=== PATIENT | female | born 1955 | race Caucasian/White ===

== ENCOUNTER 2017-10-21 12:02 | Inpatient (IN) | payer OTHER ==
--- NOTE | 2017-10-17 18:09 | PREOPHP ---
DATE OF ADMISSION: 10/21/2017 PREOPERATIVE INTERNAL MEDICINE CONSULTATION AND MEDICAL HISTORY AND PHYSICAL The patient to have surgery with Dr. Nate Miller on 10/18/2017. CONSULTATION REQUESTED BY: Dr. Nate Miller for medical evaluation and clearance of a 62-year-old woman about to undergo surgery. Thank you, Dr. Miller, for allowing us to participate in the care of this patient. HISTORY OF PRESENT ILLNESS: Alejandra Ramos, a 62-year-old woman, issues with her neck, is currently being admitted for anterior cervical diskectomy, decompression and fusion of levels C6-C7 and possibly removal of hardware C5-C6 where prior surgery was done. Her past medical history, social history and past surgical history includes the following: Carpal tunnel syndrome on the right side. Had diverticular disease which required surgery. Also had a melanoma removed from her back and as mentioned above. Had a vaginal hysterectomy and a separate salpingo- oophorectomy and as mentioned above, the prior cervical spine surgery. MEDICATIONS: She currently is taking the following medications: 1. Metformin 1000 mg b.i.d. 2. Lantus insulin 30 units at night and Humalog base of 12 units before meals as well as a sliding scale. 3. Trazodone 150 mg as needed. 4. She is currently on a Z-Claus; however, it will be finished well before her surgery. ALLERGIES: THE PATIENT IS ALLERGIC TO: 1. PAXIL. 2. IODINE DYE. 3. NONSTEROIDAL ANTI-INFLAMMATORIES, INCLUDING IBUPROFEN, ALEVE, ETC. She has had no broken bones. In general, has been doing relatively well. SOCIAL HISTORY: The patient is , has 2 children and 2 grandchildren. Her pregnancies resulted in vaginal deliveries. She does not smoke or drink alcohol or coffee. 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 FAMILY HISTORY: Both parents are . Father at 65, had COPD, was a smoker. Mother at age 82 of pneumonia. One sister is in good health. There is a family history of COPD and cancer. REVIEW OF SYSTEMS HEENT: Periodic tension headaches. CARDIORESPIRATORY: Denies any chest pain or shortness of breath. GASTROINTESTINAL: No melena or hematemesis. GENITOURINARY: No urgency, frequency. GYNECOLOGIC: Post hysterectomy. MUSCULOSKELETAL: Positive for neck pain. NEUROPSYCHIATRIC: Unremarkable. GENERAL HEALTH: As above. PHYSICAL EXAMINATION: VITAL SIGNS: The patient's blood pressure was 136/70, pulse was 88 and regular , respirations were 18, temperature 98.3, height 63 inches, weight 188 pounds. GENERAL: The patient was noted to be a well-developed, well-nourished female, alert and cooperative, in no apparent acute distress, oriented to time, place and person. HEAD, EARS, EYES, NOSE AND THROAT: Head was atraumatic. Eyes: Pupils were equal, reactive to light and accommodation. Fundi were benign. Tympanic membranes were unremarkable. Nose was negative. Mouth was unremarkable. Fair oral hygiene was present. NECK: Supple without any rigidity. Trachea was midline. Thyroid was unremarkable. Neck veins were flat. Carotid pulses were equal. No bruits were heard. Scar from prior anterior cervical spine surgery was noted. BACK: Unremarkable. CHEST: Symmetrical. AXILLARY: Did not reveal any masses. BREASTS: Full breast exam per voting machine mechanic, was not repeated. LUNGS: Clear to percussion and auscultation. HEART: PMI is fifth intercostal space at the midclavicular line. Regular sinus rhythm was noted. No significant murmurs, rubs or gallops being elicited. ABDOMEN: Soft, good bowel sounds were noted. No significant organomegaly, masses or tenderness. Scars from prior surgery were noted. GENITALIA, PELVIC, RECTAL: Per gynecology. EXTREMITIES: Did not reveal any clubbing, edema or cyanosis. Peripheral pulses were physiologic. SKIN: Moist and warm without any eruptions. No gross lymphadenopathy was noted. NEUROLOGIC: Grossly intact. IMPRESSION: 1. Cervical disk disease, C6-C7. Prior surgery at C5-C6. 2. Lumbar disk disease. 3. Diabetes mellitus type 2. 4. Post hysterectomy. 5. Stable health. LABORATORY: Review of laboratory and other data revealed the following: The patient's EKG was basically normal; however, she had a heart rate of about 97. Otherwise, there were no abnormalities noted. The patient's chest x-ray was normal. Her laboratory revealed the following: Normal electrolytes, glucose, BUN, creatinine, calcium. Liver function test revealed a minimal elevated ALT and AST, probably secondary to fatty infiltration of the liver. CBC, UA, PT and PTT were normal as well. The patient's chest x-ray was normal as well. DISCUSSION: Dr. Miller, I see no contraindication in this patient undergoing current proposed surgery under desired form of anesthesia and will be more than happy to follow her along with you during her stay at [facility] in terms of her diabetes and other medical management. Thank you again, Dr. Miller, for allowing us to participate in the care of this patient. Dictated By: KELLY CHANDRA MD SS/NTS Conf#: [id number] DID#: [id number] CC: NATE MILLER MD;*EndCC* MTDD
[2017-10-21] VITALS (16 sets, daily range): BP systolic 116–151; BP diastolic 58–83; PULSE 68–110; RESP 12–21; Ht 160 cm; Wt 89.2 kg
[~2017-10-21] VITALS: Ht 160 cm; Wt 89.2 kg
[2017-10-21] MEDS ORDERED: METF1000 PO (12:42)
[2017-10-21] MEDS ORDERED: LANT3I SC (12:43)
[2017-10-21] MEDS ORDERED: INSU200I SQ (12:44)
[2017-10-21] MEDS ORDERED: TRAZ150T65 PO (12:44)
[2017-10-21] MEDS ORDERED: LACTATED RINGER'S 1L BAG IV* SCH (13:30)
[2017-10-21] MEDS ORDERED: CEFAZOLIN 2 GM/50 ML (PMX) 50 ML IVPB SCH (13:30)
[2017-10-21] MEDS ORDERED: POLYMYXIN/BACITRACIN 1L IRRIG ONE (14:13)
[2017-10-21] MEDS: DEXTROSE 5%-0.9% NACL 1,000 ML IV SCH (15:30)
--- NOTE | 2017-10-21 15:49 | HPN ---
Date/Time of Note Date/Time of Note DATE: 10/21/17 TIME: 15:49 Interval H&P Admission Note Pt. seen H&P reviewed: No system changes JAMIR LAKE PA-C Oct 21, 2017 15:49
[2017-10-21] MEDS ORDERED: AL HYDROX/MG HYDROX/SIMETH 30 ML CUP PO PRN (16:00)
[2017-10-21] MEDS ORDERED: BISACODYL 10 MG SUPP PR PRN (16:00)
[2017-10-21] MEDS ORDERED: HYDROmorphONE 0.2 MG/ML PCA IV SCH (16:00)
[2017-10-21] MEDS ORDERED: ACETAMINOPHEN 325 MG TAB PO PRN (16:00)
[2017-10-21] MEDS ORDERED: CYCLOBENZAPRINE 10 MG TAB PO PRN (16:00)
[2017-10-21] MEDS ORDERED: NALOXONE (0.4 MG/ML) INJ IV PRN (16:00)
[2017-10-21] MEDS ORDERED: THROMBIN 5000 UNIT VIAL ONE (16:17)
[2017-10-21] MEDS ORDERED: SURGIFOAM POWDER 1 GM KIT ONE (16:17)
[2017-10-21] MEDS ORDERED: BUPIVACAINE 0.5%/EPI (SDV) 30 ML INJ ONE (16:17)
[2017-10-21] MEDS: CEFAZOLIN 1 GM/50 ML (PMX) 50 ML IVPB SCH ×2 (16:25→23:52)
[2017-10-21] MEDS ORDERED: MIDAZOLAM 1 MG/ML 2 ML INJ ONE (16:25)
[2017-10-21] MEDS ORDERED: INSULIN LISPRO SQ SCH (17:30)
[2017-10-21] MEDS: INSULIN ASPART [NOVOLOG] 3 ML PEN SC SCH ×2 (18:00→21:00)
[2017-10-21] MEDS: metFORMIN 500 MG TAB PO SCH (18:00)
[2017-10-21] MEDS ORDERED: CEFAZOLIN 1 GM INJ ONE (18:45)
[2017-10-21] MEDS ORDERED: GLYCOPYRROLATE 0.4 MG INJ ONE (18:45)
[2017-10-21] MEDS ORDERED: LIDOCAINE 2% (SDV) 5 ML INJ ONE (18:45)
[2017-10-21] MEDS ORDERED: NEOSTIGMINE 3 MG/3 ML SYRINGE ONE (18:45)
[2017-10-21] MEDS ORDERED: ROCURONIUM 50 MG INJ ONE (18:45)
[2017-10-21] MEDS ORDERED: PROPOFOL 20 ML ONE (18:45)
[2017-10-21] MEDS ORDERED: ONDANSETRON 4 MG INJ ONE (18:46)
--- NOTE | 2017-10-21 19:00 | SIPON ---
Date/Time of Note Date/Time of Note DATE: 10/21/17 TIME: 18:59 Operative Report Preoperative Diagnosis cervical stenosis Postoperative Diagnosis cervical stenosis Operation/Procedure Performed cervical fusion Surgeon see signature line document control assistant Michele Anesthesia: general Estimated blood loss: 10 - 50 ml's Transfusion Required none Specimen disk and plate Grafts/Implants plate and screws Complications none SHAN KAHN MD Oct 21, 2017 19:00
[2017-10-21] MEDS ORDERED: HYDROmorphONE (0.2 MG/ML) 10ML SYG IV ONE (19:05)
[2017-10-21] MEDS ORDERED: FENTAnyl 50 MCG/ML VIAL ONE (19:06)
[2017-10-21] MEDS ORDERED: MEPERIDINE 25 MG INJ IV PRN (19:30)
[2017-10-21] MEDS ORDERED: LABETALOL HCL 20MG INJ IV PRN (19:30)
[2017-10-21] MEDS ORDERED: HYDROmorphONE (0.2 MG/ML) 10ML SYG IV PRN ×2 (19:30)
[2017-10-21] MEDS ORDERED: ONDANSETRON 4 MG INJ IV PRN (19:30)
[2017-10-21] MEDS ORDERED: DIPHENHYDRAMINE 50 MG INJ IV PRN (19:30)
[2017-10-21] MEDS ORDERED: FENTAnyl 50 MCG/ML VIAL IV PRN (19:30)
[2017-10-21] MEDS ORDERED: hydrALAzine 20 MG INJ IV PRN (19:30)
[2017-10-21] MEDS: DIPHENHYDRAMINE 50 MG INJ IV PRN (19:37)
[2017-10-21] MEDS ORDERED: GLUCAGON 1 MG INJ IM PRN (20:00)
[2017-10-21] MEDS ORDERED: GLUCOSE GEL 15 GRAM TUBE BUCCAL PRN (20:00)
[2017-10-21] MEDS ORDERED: GLUCOSE GEL 15 GRAM TUBE PO PRN ×2 (20:00)
[2017-10-21] MEDS ORDERED: DEXTROSE 50% 50 ML SYRINGE IV PRN ×2 (20:00)
[2017-10-21] MEDS: 1/2 NS + KCL 20 MEQ 1,000 ML IV SCH (20:55)
[2017-10-21] MEDS: traZODone 50 MG TAB PO SCH (20:58)
[2017-10-21] MEDS: DOCUSATE SODIUM 100 MG CAP PO SCH (20:59)
--- NOTE | 2017-10-21 21:39 | RADRPT ---
PROCEDURE: Intraoperative imaging of the cervical spine with fluoroscopy. CLINICAL INDICATION: Neck pain. Intraoperative. TECHNIQUE: Four images of the cervical spine were obtained in the operating room with an image int ensifier. No radiologist was in attendance. Fluoroscopy time is 9.7 seconds. COMPARISON: No prior study is available for comparison. FINDINGS: Surgical instruments are noted overlying the cervical spine. Images demonstrate removal of the ante rior plate and screws at C5-6. There is subsequent placement of anterior screws and intervertebral c age at C6-7. IMPRESSION: 1. Intraoperative imaging of the cervical spine. RPTAT: QQ .Ralph Houston MD, Date Time Electronically viewed and signed by .Ralph Houston MD, on 10/21/2017 21:39 .R/
[2017-10-21] MEDS: INSULIN GLARGINE [LANtus] 3 ML PEN SC SCH (22:20)
[2017-10-21] MEDS: HYDROmorphONE 0.5 MG/0.5 ML SYG IV PRN (22:21)
--- NOTE | 2017-10-21 23:04 | OPR ---
DATE OF OPERATION: 10/21/2017 PREOPERATIVE DIAGNOSES: 1. Previous C5-6 instrumented fusion. 2. C6-7 adjacent disk disease and stenosis. POSTOPERATIVE DIAGNOSES: 1. Previous C5-6 instrumented fusion. 2. C6-7 adjacent disk disease and stenosis. PROCEDURE: 1. Anterior cervical diskectomy and spinal cord decompression at C6-7. 2. Anterior cervical fusion at C6-7. 3. Placement of intervertebral biomechanical device with integral screws at C6-7. 4. Removal of cervical plate at C5-6. 5. Evaluation of fusion at C5-6. 6. Use of allograft. 7. Use of operative microscope. 8. Use of C-arm fluoroscopy with interpretation without radiologist present. 9. Intraoperative neuromonitoring (1 hour 45 minutes). IMPLANTS: 1. RTI, [employer]ison C, 10 mm height with 7-degree lordosis, 20 mm width, 16 mm depth with 16 x 13.4 mm s crews. 2. Fibergraft matrix. PRIMARY SURGEON: Nate Miller MD TRIMMER HELPER: MIGUEL ANGEL Felix NEED FOR ETL DATABASE DEVELOPER: During this spinal surgical procedure, my assistant auto center manager was used to retrac t and protect the spinal nerves and dural sac. My assistant auto center manager also employed the suction catheters to evacuate blood from the surgical field to improve visualization of the neural structures. The chauncey tant was medically necessary to facilitate the completion of the surgery in a safe and expeditious m [place]. State of [place] regulations, as well as hospital bylaws, preclude the use of non-license d health care personnel, such as operating room technicians, to perform these functions. FINDINGS: The patient had successful fusion at the C5-6 level. At C6-7, she had cervical disk dise ase and stenosis. Nerve signals revealed left C6 amplitude down 30%, left C7 amplitude down 20%, ri ght C7 amplitude down 30%. End of the case, nerve signals returned to normal. ESTIMATED BLOOD LOSS: 30 mL. DRAINS: None. SPECIMENS: C6-7 disk and cervical hardware, was sent to pathology. COMPLICATIONS OF PROCEDURES: None. ANESTHESIOLOGIST: Kemar Luque MD TYPE OF ANESTHESIA: General. INDICATIONS FOR PROCEDURE: This is a 62-year-old female with cervical disk disease and left cervica l radiculopathy. She failed nonoperative measures, therefore I recommended proceeding with the abo e-mentioned surgery. Preoperatively, I discussed the risks, benefits, and alternatives. She unders tood and wished to proceed. DESCRIPTION OF PROCEDURE IN DETAIL: The patient was identified in the preoperative holding area, isaías velasquez, taken to the operating room, where she was successfully placed under general a nesthesia. Neuromonitoring leads were placed, sequential compressive devices were applied. Neuromo nitoring was utilized during the procedure for 1 hour and 45 minutes to include SSEP, MEP and EMG. This was performed by [employer]. Start time was 5:00 p.m., closure time was 6:45 p.m. The p atmichael was placed on the operating table in supine position. Arms were tucked, neck was extended, n ean was prepped and draped in usual sterile fashion. I made an incision more inferior than the tyler ent's previous incision in order to access the C6-7 level. Skin was incised. I then identified an interval between the sternocleidomastoid and strap muscles. I identified the anterior spine. I the n identified the cervical plate. Submuscularly, I dissected the longus colli musculature and identi fied the plate. I removed the 4 inner screws, followed by the 4 outer screws and then I removed the cervical plate. I assessed the fusion, this level was fused. I then dissected the longus colli mu sculature at the C6-7 level. I placed self-retaining retractors. Anesthesiologist deflated and claus nflated the cuff. I removed the anterior drawer spurs with a rongeur. I then brought in the micros cope and a radical diskectomy was performed at this level with high speed bur. I decompressed her p osterior spinal cord and neural foramina bilaterally. I then placed various trials and chose the ap propriate graft height. I took the PEEK cage within which I placed allograft and I impacted interve rtebral biomechanical device into the C6-7 level to complete the anterior fusion at this level. I n ext placed the 16 mm screws into C5 and C6, and turned the locking mechanism. Once this was done, I took final AP and lateral images. I was happy with placement of the hardware and alignment of the spine. The wound was irrigated. All nerve signals returned to normal. Hemostasis achieved with Damon rgifoam. The wound was dried, therefore I elected not to place a drain. Retractors removed and I c losed the platysma with a #1 running Vicryl stitch. I then closed subcutaneous tissue with a 2-0 Vi cryl stitch. Dermabond was then applied. The patient was then awakened from anesthesia and taken t o the recovery room in stable condition. Lap, sponge and instrument counts were correct x2. There were no apparent complications during the procedure. The patient will be admitted to the [facility] for routine postoperative care to include pain c ontrol, neurovascular checks, antibiotics and physical therapy. Dictated By: NATE ADEN/JONA Conf#: [id number] DID#: [id number] CC: JAMIR LAKE;*[facility]*
[2017-10-22] MEDS: HYDROmorphONE 0.5 MG/0.5 ML SYG IV PRN (00:39)
[2017-10-22] MEDS: DEXTROSE 5%-0.9% NACL 1,000 ML IV SCH ×3 (01:30→21:30)
[2017-10-22] MEDS: ZOLPIDEM 5 MG TAB PO PRN ×2 (01:43→21:28)
[2017-10-22] MEDS: 1/2 NS + KCL 20 MEQ 1,000 ML IV SCH ×3 (01:49→21:49)
[2017-10-22] MEDS: ACCU-CHEK XX SCH ×2 (02:00→21:50)
[2017-10-22 05:20] LABS: ABNORMAL IP MESSAGE 1; BASOPHILS % 0.5 % (0.0-2.0); EOSINOPHILS # 0.1 10^3/ul (0.0-0.5); EOSINOPHILS % 0.7 % (0.0-7.0); HEMATOCRIT 36.5 % (37.0-47.0); HEMOGLOBIN 12.2 g/dl (12.0-16.0); LYMPHOCYTES # 1.2 10^3/ul (0.8-2.9); LYMPHOCYTES % 13.5 % (15.0-51.0); MEAN CORPUSCULAR HEMOGLOBIN 31.7 pg (29.0-33.0); MEAN CORPUSCULAR HGB CONC 33.4 g/dl (32.0-37.0); MEAN CORPUSCULAR VOLUME 94.8 fl (82.0-101.0); MEAN PLATELET VOLUME 10.7 fl (7.4-10.4); MONOCYTE # 0.7 10^3/ul (0.3-0.9); MONOCYTES % 8.4 % (0.0-11.0); NEUTROPHIL # 6.8 10^3/ul (1.6-7.5); NEUTROPHILS % 76.7 % (39.0-77.0); PLATELET COUNT 65 10^3/UL (140-415); RED BLOOD COUNT 3.85 10^6/ul (4.20-5.40); RED CELL DISTRIBUTION WIDTH 12.5 % (11.5-14.5); WHITE BLOOD COUNT 8.8 10^3/ul (4.8-10.8)
[2017-10-22 05:28] LABS: POSITIVE DIFF @See below
[2017-10-22 05:52] LABS: CALCIUM 8.6 mg/dl (8.4-10.2); CREATININE 0.54 mg/dl (0.44-1.00); MAGNESIUM 1.6 mg/dl (1.7-2.5); POTASSIUM 4.4 mmol/L (3.5-5.1)
[2017-10-22] MEDS: ONDANSETRON 4 MG INJ IV PRN (06:01)
[2017-10-22 07:48] VITALS: BP 118/59; RESP 18
[2017-10-22] MEDS: metFORMIN 500 MG TAB PO SCH ×2 (07:50→17:55)
--- NOTE | 2017-10-22 07:57 | PN ---
Date/Time of Note Date/Time of Note DATE: 10/22/17 TIME: 07:56 Assessment/Plan Lines/Catheters IV Catheter Type (from Nrsg): Peripheral IV Avery in Place (from Nrsg): No Assessment/Plan Assessment/Plan s/p ACDF C6-7, D/C HW C5-6 continue pain control PT, ambulate anticip D/C tomorrow Subjective 24 Hr Interval Summary c/o sore throat, neck and trapezial pain Exam/Review of Systems Vital Signs Vitals Vital Signs Date Time Temp Pulse Resp B/P Pulse Ox O2 Delivery O2 Flow Rate FiO2 10/22/17 05:00 18 10/21/17 23:58 98.5 84 116/58 98 10/21/17 22:00 Nasal Cannula 2.0 Intake and Output 10/21/17 10/21/17 10/22/17 15:00 23:00 07:00 Intake Total 1000 ml 1000 ml Output Total 15 ml Balance 985 ml 1000 ml Exam Free Text/Dictation right hand numbness incision c/d/i Results Result Diagram: 10/22/17 0439 10/22/17 0438 JAMIR LAKE PA-C Oct 22, 2017 07:57
[2017-10-22] MEDS ORDERED: CEPASTAT LOZENGE MT PRN (08:00)
--- NOTE | 2017-10-22 08:02 | CONS ---
Date/Time of Note Date/Time of Note DATE: 10/22/17 TIME: 07:56 Consult Date/Type/Reason Admit Date/Time Oct 21, 2017 at 12:02 Initial Consult Date 10/17/2017 Type of Consultation: internal medicine/endo Reason for Consultation pre-op medical clearance and medical post-op f/u Ordering Provider: SHAN KAHN MD Subjective complaining of neck pain and trouble swallowing probably 2nd to intubation Objective Vital Signs Date Time Temp Pulse Resp B/P Pulse Ox O2 Delivery O2 Flow Rate FiO2 10/22/17 05:00 18 10/21/17 23:58 98.5 84 116/58 98 10/21/17 22:00 Nasal Cannula 2.0 Intake and Output 10/21/17 10/21/17 10/22/17 15:00 23:00 07:00 Intake Total 1000 ml 1000 ml Output Total 15 ml Balance 985 ml 1000 ml Exam vss heent negative scar anterior 2nd to surgery lungs clear heart abbdomen softregular rhythm Results/Medications Result Diagram: 10/22/17 0439 10/22/17 0438 Results 24 hrs Laboratory Tests Test 10/21/17 12:34 10/21/17 15:10 10/21/17 18:58 10/21/17 20:48 Bedside Glucose 92 85 130 111 Test 10/21/17 22:15 10/22/17 04:38 10/22/17 04:39 Bedside Glucose 119 Sodium Level 140 Potassium Level 4.4 Chloride Level 104 Carbon Dioxide Level 27 Anion Gap 13 Blood Urea Nitrogen 11 Creatinine 0.54 Glucose Level 183 Calcium Level 8.6 Magnesium Level 1.6 L White Blood Count 8.8 Red Blood Count 3.85 L Hemoglobin 12.2 Hematocrit 36.5 L Mean Corpuscular Volume 94.8 Mean Corpuscular Hemoglobin 31.7 Mean Corpuscular Hemoglobin Concent 33.4 Red Cell Distribution Width 12.5 Platelet Count 65 L Mean Platelet Volume 10.7 H Neutrophils % 76.7 Lymphocytes % 13.5 L Monocytes % 8.4 Eosinophils % 0.7 Basophils % 0.5 Nucleated Red Blood Cells % 0.0 Neutrophils # 6.8 Lymphocytes # 1.2 Monocytes # 0.7 Eosinophils # 0.1 Basophils # 0.0 Nucleated Red Blood Cells # 0.0 Medications Current Medications Dextrose/Sodium Chloride 1,000 ml @ 100 mls/hr Q10H IV ; Start 12/4/17 at 15: 30 Potassium Chloride/Sodium Chloride (1/2 NS + KCl 20 Meq) 1,000 ml @ 100 mls/hr Q10H IV Last administered on 10/22/17 06:46; Admin Dose 100 MLS/HR; Start 10/21/17 at 15:49 Acetaminophen/ Hydrocodone Bitart ([place] (10325)) 1 tab Q4H PRN PO PAIN LEVEL 1-5; Start 10/22/17 at 10:00 Acetaminophen/ Hydrocodone Bitart ([place] (10325)) 2 tab Q4H PRN PO PAIN LEVEL 6-10; Start 10/22/17 at 10:00 Hydromorphone HCl 0.2 mg 0.2 mg Q1H PRN IV BREAKTHROUGH PAIN Last administered on 10/22/17 00:39; Admin Dose 0.2 MG; Start 10/21/17 at 16:00 Cefazolin Sodium (Ancef 1 Gm/50 ml (Pmx)) 50 ml @ 100 mls/hr Q8H IVPB Last administered on 10/21/17 23:52; Admin Dose 100 MLS/HR; Start 10/21/17 at 16:00 ; Stop 10/22/17 at 08:29 Ondansetron HCl (Zofran Inj) 4 mg Q6H PRN IV NAUSEA AND/OR VOMITING Last administered on 10/22/17 06:01; Admin Dose 4 MG; Start 10/21/17 at 16:00 Bisacodyl (Dulcolax Supp) 10 mg DAILY PRN [place] CONSTIPATION; Start 10/21/17 at 16 :00 Docusate Sodium (Colace) 100 mg BID PO ; Start 10/21/17 at 21:00 Al Hydrox/Mg Hydrox/Simethicone (Mag-Al Plus) 15 ml Q6H PRN PO CONSTIPATION/ DYSPEPSIA; Start 10/21/17 at 16:00 Acetaminophen (Tylenol Tab) 650 mg Q4H PRN PO ESCALANTE OR TEMP GREATER THAN 101.3F; Start 10/21/17 at 16:00 Cyclobenzaprine HCl (Flexeril) 10 mg TID PRN PO MUSCLE SPASMS; Start 10/21/17 at 16:00 Phenol (Cepastat Lozenge) 1 lozenge PRN PRN MT SORE THROAT; Start 10/21/17 at 16:00 Diphenhydramine HCl (Benadryl) 25 mg Q6H PRN IV ITCHING Last administered on 19:37; Admin Dose 25 MG; Start 10/21/17 at 16:00 Naloxone HCl (Narcan) 0.2 mg Q2M PRN IV RR 8 BREATHS/MIN OR LESS; Start at 16:00 Miscellaneous Information 1. Hold SPANISH SPEAKING NANNY at 1,000... SPANISH SPEAKING NANNY IV ; Start 10/21/17 at 16: 00; Stop 10/22/17 at 11:00 Acetaminophen/ Hydrocodone Bitart ([place] (10)) 2 tab 0930 PO ; Start at 09:30; Stop 10/22/17 at 11:00 Insulin Glargine (Lantus) 20 unit QHS SC Last administered on 10/21/17 22:20; Admin Dose 20 UNIT; Start 10/21/17 at 21:00 Trazodone HCl (Desyrel) 150 mg QHS PO ; Start 10/21/17 at 21:00 Diagnostic Test (Pha) (Accu-Chek) 1 ea 02 XX ; Start 10/22/17 at 02:00 Miscellaneous Information 1 ea NOTE XX ; Start 10/21/17 at 20:00 Glucose (Glutose) 15 gm Q15M PRN PO DECREASED GLUCOSE; Start 10/21/17 at 20:00 Glucose (Glutose) 22.5 gm Q15M PRN PO DECREASED GLUCOSE; Start 10/21/17 at 20: 00 Dextrose (D50w Syringe) 25 ml Q15M PRN IV DECREASED GLUCOSE; Start 10/21/17 at 20:00 Dextrose (D50w Syringe) 50 ml Q15M PRN IV DECREASED GLUCOSE; Start 10/21/17 at 20:00 Glucagon (Glucagen) 1 mg Q15M PRN IM DECREASED GLUCOSE; Start 10/21/17 at 20:00 Glucose (Glutose) 15 gm Q15M PRN BUCCAL DECREASED GLUCOSE; Start 10/21/17 at 20 :00 Hydromorphone HCl (Dilaudid SPANISH SPEAKING NANNY) SPANISH SPEAKING NANNY to be started in PACU Q4PCA IV ; Start 10/22/17 at 08:00 Assessment/Plan Chief Complaint/Hosp Course neck pain and trouble swallowing main complaint will try some lozenges.will adjust insulin based on intake Problems: Additional Assessment/Plan will follow with you---thank you KELLY Low MD Oct 22, 2017 08:02
[2017-10-22] MEDS: CEFAZOLIN 1 GM/50 ML (PMX) 50 ML IVPB SCH (08:24)
[2017-10-22] MEDS: DOCUSATE SODIUM 100 MG CAP PO SCH ×2 (08:25→21:28)
[2017-10-22] MEDS: INSULIN ASPART [NOVOLOG] 3 ML PEN SC SCH ×4 (08:51→21:00)
[2017-10-22 09:28] LABS: MONOCYTES % (M) 6 % (0-11); PLATELET ESTIMATE SIG DECREASED; POIKILOCYTOSIS 1+ (0-0); POLYCHROMASIA 1+ (0-0); REACTIVE LYMPHOCYTES% (M) 3 % (0-0)
[2017-10-22] MEDS ORDERED: HYDROCODONE/APAP (10/325) TAB PO SCH (09:30)
[2017-10-22] MEDS: HYDROmorphONE 0.2 MG/ML PCA IV SCH (09:42)
[2017-10-22] MEDS ORDERED: HYDROCODONE/APAP (10/325) TAB PO PRN ×2 (10:00)
[2017-10-22] MEDS: MAGNESIUM OXIDE 400 MG TAB PO SCH ×2 (12:58→21:28)
[2017-10-22] MEDS: DIPHENHYDRAMINE 50 MG INJ IV PRN (18:32)
[2017-10-22 19:39] VITALS: BP 127/69; RESP 18
[2017-10-22] MEDS: traZODone 50 MG TAB PO SCH (21:00)
[2017-10-22] MEDS: INSULIN GLARGINE [LANtus] 3 ML PEN SC SCH (21:48)
[2017-10-23 01:43] VITALS: BP 133/65; RESP 18
[2017-10-23] MEDS: DEXTROSE 5%-0.9% NACL 1,000 ML IV SCH ×2 (02:59→17:30)
[2017-10-23 05:23] LABS: BASOPHILS % 0.3 % (0.0-2.0); EOSINOPHILS # 0.1 10^3/ul (0.0-0.5); EOSINOPHILS % 1.5 % (0.0-7.0); HEMATOCRIT 32.9 % (37.0-47.0); HEMOGLOBIN 11.2 g/dl (12.0-16.0); LYMPHOCYTES # 1.4 10^3/ul (0.8-2.9); MEAN CORPUSCULAR HEMOGLOBIN 31.7 pg (29.0-33.0); MEAN CORPUSCULAR VOLUME 93.2 fl (82.0-101.0); MEAN PLATELET VOLUME 9.7 fl (7.4-10.4); MONOCYTE # 0.7 10^3/ul (0.3-0.9); MONOCYTES % 10.1 % (0.0-11.0); NEUTROPHIL # 4.5 10^3/ul (1.6-7.5); NEUTROPHILS % 66.8 % (39.0-77.0); PLATELET COUNT 120 10^3/UL (140-415); RED BLOOD COUNT 3.53 10^6/ul (4.20-5.40); RED CELL DISTRIBUTION WIDTH 12.5 % (11.5-14.5); WHITE BLOOD COUNT 6.7 10^3/ul (4.8-10.8)
[2017-10-23 05:43] LABS: ALBUMIN 3.5 g/dl (3.3-4.9); ALBUMIN/GLOBULIN RATIO 0.97; BILIRUBIN,INDIRECT 2.2 mg/dl (0-1.1); BILIRUBIN,TOTAL 2.2 mg/dl (0.2-1.3); CALCIUM 8.9 mg/dl (8.4-10.2); CREATININE 0.53 mg/dl (0.44-1.00); POTASSIUM 3.5 mmol/L (3.5-5.1); TOTAL PROTEIN 7.1 g/dl (6.1-8.1)
[2017-10-23 07:45] VITALS: BP 130/73; RESP 18
[2017-10-23] MEDS: metFORMIN 500 MG TAB PO SCH ×2 (07:50→17:55)
--- NOTE | 2017-10-23 08:00 | PN ---
Date/Time of Note Date/Time of Note DATE: 10/23/17 TIME: 07:57 Assessment/Plan Lines/Catheters IV Catheter Type (from Nrsg): Peripheral IV Avery in Place (from Nrsg): No Assessment/Plan Assessment/Plan POD #2 s/p ACDF C6-7, D/C HW C5-6 epistaxis - likely unrelated to surgery sore throat, swallowing difficulty likely 2/2 surgical approach, order OT swallow eval CXR to r/o PNA per Dr. Block anticipate D/C tomorrow if studies negative Subjective 24 Hr Interval Summary pt c/o trapezial pain, sore throat, swallowing difficulty, nosebleed Exam/Review of Systems Vital Signs Vitals Vital Signs Date Time Temp Pulse Resp B/P Pulse Ox O2 Delivery O2 Flow Rate FiO2 10/23/17 07:45 98.2 74 18 130/73 93 10/21/17 22:00 Nasal Cannula 2.0 Intake and Output 10/22/17 10/22/17 10/23/17 15:00 23:00 07:00 Intake Total 50 ml 1500 ml 700 ml Output Total 650 ml Balance 50 ml 850 ml 700 ml Exam Free Text/Dictation right hand numbness bicep, tricep, delt strength 4+5/bilaterally incision c/d/i no SOB, difficulty breathing denies CP Results Result Diagram: 10/23/17 0456 10/23/17 0456 JAMIR LAKE PA-C Oct 23, 2017 08:00
--- NOTE | 2017-10-23 08:18 | CONS ---
Date/Time of Note Date/Time of Note DATE: 10/23/17 TIME: 08:13 Consult Date/Type/Reason Admit Date/Time Oct 21, 2017 at 12:02 Initial Consult Date 10/17/2017 Type of Consultation: internal medicine/endo Reason for Consultation medical f/u and management Ordering Provider: SHAN KAHN MD Subjective coplaining of nose bleed and cough and sob as well as some back/chest pian Objective Vital Signs Date Time Temp Pulse Resp B/P Pulse Ox O2 Delivery O2 Flow Rate FiO2 10/23/17 07:45 98.2 74 18 130/73 93 10/21/17 22:00 Nasal Cannula 2.0 Intake and Output 10/22/17 10/22/17 10/23/17 15:00 23:00 07:00 Intake Total 50 ml 1500 ml 700 ml Output Total 650 ml Balance 50 ml 850 ml 700 ml Results/Medications Result Diagram: 10/23/17 0456 10/23/17 0456 Results 24 hrs Laboratory Tests Test 10/22/17 08:27 10/22/17 12:27 10/22/17 17:36 10/22/17 21:27 Bedside Glucose 171 159 124 137 Test 10/23/17 04:56 White Blood Count 6.7 # Red Blood Count 3.53 L Hemoglobin 11.2 L Hematocrit 32.9 L Mean Corpuscular Volume 93.2 Mean Corpuscular Hemoglobin 31.7 Mean Corpuscular Hemoglobin Concent 34.0 Red Cell Distribution Width 12.5 Platelet Count 120 #L Mean Platelet Volume 9.7 Neutrophils % 66.8 Lymphocytes % 21.0 Monocytes % 10.1 Eosinophils % 1.5 Basophils % 0.3 Nucleated Red Blood Cells % 0.0 Neutrophils # 4.5 Lymphocytes # 1.4 Monocytes # 0.7 Eosinophils # 0.1 Basophils # 0.0 Nucleated Red Blood Cells # 0.0 Sodium Level 138 Potassium Level 3.5 Chloride Level 101 Carbon Dioxide Level 29 Anion Gap 12 Blood Urea Nitrogen 7 Creatinine 0.53 Glucose Level 210 Calcium Level 8.9 Magnesium Level 1.8 Total Bilirubin 2.2 H Direct Bilirubin 0.00 Indirect Bilirubin 2.2 H Aspartate Amino Transf (AST/SGOT) 52 H Alanine Aminotransferase (ALT/SGPT) 72 H Alkaline Phosphatase 56 Total Protein 7.1 Albumin 3.5 Globulin 3.60 H Albumin/Globulin Ratio 0.97 Medications Current Medications Dextrose/Sodium Chloride 1,000 ml @ 100 mls/hr Q10H IV ; Start 10/21/17 at 15: 30 Potassium Chloride/Sodium Chloride (1/2 NS + KCl 20 Meq) 1,000 ml @ 100 mls/hr Q10H IV Last administered on 10/22/17 06:46; Admin Dose 100 MLS/HR; Start 10/21/17 at 15:49 Acetaminophen/ Hydrocodone Bitart ([place] (10/325)) 1 tab Q4H PRN PO PAIN LEVEL 1-5; Start 10/22/17 at 10:00 Acetaminophen/ Hydrocodone Bitart ([place] (10/325)) 2 tab Q4H PRN PO PAIN LEVEL 6-10; Start 10/22/17 at 10:00 Hydromorphone HCl (Dilaudid) 0.2 mg Q1H PRN IV BREAKTHROUGH PAIN Last administered on 10/22/17 00:39; Admin Dose 0.2 MG; Start 10/21/17 at 16:00 Ondansetron HCl (Zofran Inj) 4 mg Q6H PRN IV NAUSEA AND/OR VOMITING Last administered on 10/22/17 06:01; Admin Dose 4 MG; Start 10/21/17 at 16:00 Bisacodyl (Dulcolax Supp) 10 mg DAILY PRN [place] CONSTIPATION; Start 10/21/17 at 16 :00 Docusate Sodium (Colace) 100 mg BID PO Last administered on 10/22/17 21:28; Admin Dose 100 MG; Start 10/21/17 at 21:00 Al Hydrox/Mg Hydrox/Simethicone (Mag-Al Plus) 15 ml Q6H PRN PO CONSTIPATION/ DYSPEPSIA; Start 10/21/17 at 16:00 Acetaminophen (Tylenol Tab) 650 mg Q4H PRN PO ESCALANTE OR TEMP GREATER THAN 101.3F; Start 10/21/17 at 16:00 Cyclobenzaprine HCl (Flexeril) 10 mg TID PRN PO MUSCLE SPASMS; Start 10/21/17 at 16:00 Phenol (Cepastat Lozenge) 1 lozenge PRN PRN MT SORE THROAT; Start 10/21/17 at 16:00 Diphenhydramine HCl (Benadryl) 25 mg Q6H PRN IV ITCHING Last administered on 18:32; Admin Dose 25 MG; Start 10/21/17 at 16:00 Naloxone HCl (Narcan) 0.2 mg Q2M PRN IV RR 8 BREATHS/MIN OR LESS; Start at 16:00 Insulin Glargine (Lantus) 20 unit QHS SC Last administered on 10/22/17 21:48; Admin Dose 20 UNIT; Start 10/21/17 at 21:00 Trazodone HCl (Desyrel) 150 mg QHS PO ; Start 10/21/17 at 21:00 Diagnostic Test (Pha) (Accu-Chek) 1 ea 02 XX ; Start 10/22/17 at 02:00 Miscellaneous Information 1 ea NOTE XX ; Start 10/21/17 at 20:00 Glucose (Glutose) 15 gm Q15M PRN PO DECREASED GLUCOSE; Start 10/21/17 at 20:00 Glucose (Glutose) 22.5 gm Q15M PRN PO DECREASED GLUCOSE; Start 10/21/17 at 20: 00 Dextrose (D50w Syringe) 25 ml Q15M PRN IV DECREASED GLUCOSE; Start 10/21/17 at 20:00 Dextrose (D50w Syringe) 50 ml Q15M PRN IV DECREASED GLUCOSE; Start 10/21/17 at 20:00 Glucagon (Glucagen) 1 mg Q15M PRN IM DECREASED GLUCOSE; Start 10/21/17 at 20:00 Glucose (Glutose) 15 gm Q15M PRN BUCCAL DECREASED GLUCOSE; Start 10/21/17 at 20 :00 Hydromorphone HCl (Dilaudid STOCKROOM SUPERVISOR) STOCKROOM SUPERVISOR to be started in PACU Q4PCA IV Last administered on 10/22/17 09:42; Admin Dose 6 MG; Start 10/22/17 at 08:00 Phenol (Cepastat Lozenge) 1 lozenge Q1H PRN MT throat pain; Start 10/22/17 at 08:00 Magnesium Oxide (Mag-Ox 400) 400 mg BID PO Last administered on 10/22/17 21:28 ; Admin Dose 400 MG; Start 10/22/17 at 09:00 Assessment/Plan Chief Complaint/Hosp Course neck pain and trouble swallowing main complaint will try some lozenges.will adjust insulin based on intake Problems: Additional Assessment/Plan plan chest xray ,abg's .,if ok possibly course of steroids.of note platelet ct. decreased will follow after studies done KELLY CHANDRA MD Oct 23, 2017 08:18
[2017-10-23] MEDS: INSULIN ASPART [NOVOLOG] 3 ML PEN SC SCH ×4 (08:35→21:22)
[2017-10-23 08:59] LABS: AADO2 Arterial 25.3 mmHg (7.0-24.0); Allen Test ACCEPTAB; Arterial Base Excess 1.5 mmol/L (-3.0-3); Arterial COHb 0.6 % (0.0-3.0); Arterial Fraction of Oxyhgb 95.6 % (93.0-99.0); Arterial HCO3 25.1 mmol/L (22.0-26.0); Arterial MetHb 0.1 % (0.0-1.5); MODE ROOM AIR
[2017-10-23] MEDS: MAGNESIUM OXIDE 400 MG TAB PO SCH ×2 (09:00→21:00)
--- NOTE | 2017-10-23 09:17 | RADRPT ---
PROCEDURE: XR Chest. CLINICAL INDICATION: chest pain, cough TECHNIQUE: Single frontal view of the chest was obtained COMPARISON: None FINDINGS: The heart and mediastinum are within normal limits. The lungs are clear. There is no pleural effusion or pneumothorax. The patient is status post cervical spine fusion. RPTAT: AA IMPRESSION: No acute disease. .Anshu Nolan MD, MD Date Time Electronically viewed and signed by .Anshu Nolan MD, on 10/23/2017 09:17 .S/
[2017-10-23] MEDS: 1/2 NS + KCL 20 MEQ 1,000 ML IV SCH ×2 (09:23→17:49)
[2017-10-23] MEDS: CEPASTAT LOZENGE MT PRN (09:24)
[2017-10-23] MEDS: DOCUSATE SODIUM 100 MG CAP PO SCH ×2 (09:25→21:14)
[2017-10-23] MEDS: ACETAMINOPHEN 1000MG/100ML IV 100 ML IVPB SCH ×3 (09:26→21:15)
[2017-10-23] MEDS ORDERED: DEXAMETHASONE 4 MG/ML 1 ML INJ IV ONE (14:00)
--- NOTE | 2017-10-23 14:21 | PN ---
Date/Time of Note Date/Time of Note DATE: 10/23/17 TIME: 14:19 Assessment/Plan Lines/Catheters IV Catheter Type (from Nrs): Peripheral IV Avery in Place (from Nrs): No Assessment/Plan Assessment/Plan POD #2 s/p ACDF C6-7 with hw removal C5-6 PT OT swallow eval pending order MRI C-spine to r/o hematoma CXR negative - ordered decadron 5mg IV x1 will watch blood sugars after decadron Subjective 24 Hr Interval Summary pt continues to c/o swallowing difficulty and pain denies difficulty breathing Exam/Review of Systems Vital Signs Vitals Vital Signs Date Time Temp Pulse Resp B/P Pulse Ox O2 Delivery O2 Flow Rate FiO2 10/23/17 07:45 98.2 74 18 130/73 93 10/21/17 22:00 Nasal Cannula 2.0 Intake and Output 10/22/17 10/22/17 10/23/17 14:59 22:59 06:59 Intake Total 50 ml 1500 ml 700 ml Output Total 650 ml Balance 50 ml 850 ml 700 ml Exam Free Text/Dictation no difficulty breathing, no s/sx respiratory insufficiency incision - area is TTP, mild swelling, no crepitus, no fluctuant masses noted Results Result Diagram: 10/23/17 0456 10/23/17 0456 JAMIR LAKE PA-C Oct 23, 2017 14:21
[2017-10-23] MEDS: DIPHENHYDRAMINE 50 MG INJ IV PRN (15:08)
[2017-10-23] MEDS: HYDROmorphONE 0.2 MG/ML PCA IV SCH (15:09)
--- NOTE | 2017-10-23 17:25 | RADRPT ---
PROCEDURE: MR cervical spine without contrast CLINICAL INDICATION: Difficulty swallowing. Recent anterior cervical decompression fusion surgery at C6-7. Clinical concern for hematoma TECHNIQUE: An MRI of the cervical spine was performed utilizing sagittal T1 weighted, sagittal T2 weighted, sagittal STIR, axial T2-weighted balance fast field echo and axial GRE. COMPARISON: A intraoperative exposures of 10/21/2017 FINDINGS: Vertebral bodies: In the prevertebral space extending from the C2 level to the level of 66 is a yuridia ticular shaped hypointense T1 and hyperintense T2/STIR collection estimated at 1.0 x 2.4 x 7.8 cm, f indings concerning for a hematoma or seroma. The cervical lordosis is straightened possibly position ing or muscle spasm. Susceptibility artifact from anterior fusion plate, screws and interbody graft at C6-7 noted. There is no evidence of bone marrow edema or loss of axial height. No subluxation is present Cervical spinal cord: Normal in signal intensity and caliber at every level. The craniocervical ju nction region is intact. There is no evidence of epidural hematoma or collection C2-3: The disk is normal in height. No disk bulge or herniation is identified. The central canal a nd foramina are patent. C3-4: The disk is normal in height. Trace 2 mm disc bulging is present which extends to the PACS th e anterior cervical cord. The central canal and foramina are patent. C4-5: The disk is normal in height. Mild annular disc bulging of 2 mm is present without protrusion . The central canal and foramina are patent. C5-6: Changes of prior interbody graft fusion are present. There is no disc protrusion. No central canal stenosis is present. The foramina are patent bilaterally. C6-7: Susceptibility artifact from interbody graft and obliquely oriented anterior fusion screws. T here is no central canal stenosis. The foramina are patent bilaterally. C7-T1: The disk is normal in height. No disk bulge or herniation is identified. The central canal and foramina are patent. RPTAT:HJJR IMPRESSION: 1. Prevertebral collection anterior to the C2-C6 vertebral bodies consistent with a postoperative se tacho or hematoma correlating with the provided clinical concern. Results are discussed by telephone with the patient's nurse Adry at 17:24 2. Normal cervical spinal cord and spinal canal without epidural hematoma or canal stenosis. 3. Changes of anterior cervical fusion at both C5-6 and C6-7. 4. Mild disc bulging at C3-4 and C4-5 without stenosis. Physician Nagi Date Time Electronically viewed and signed by Vincent Santos Physician on 10/23/2017 17:25 JR/
[2017-10-23] MEDS: ONDANSETRON 4 MG INJ IV PRN (17:38)
[2017-10-23 20:02] VITALS: BP 145/68; RESP 19
[2017-10-23] MEDS: traZODone 50 MG TAB PO SCH (21:00)
[2017-10-23] MEDS: ZOLPIDEM 5 MG TAB PO PRN (21:14)
[2017-10-23] MEDS: INSULIN GLARGINE [LANtus] 3 ML PEN SC SCH (21:24)
[2017-10-24 01:33] VITALS: BP 138/62; RESP 19
[2017-10-24] MEDS: ACCU-CHEK XX SCH (02:00)
[2017-10-24] MEDS: DEXTROSE 5%-0.9% NACL 1,000 ML IV SCH ×3 (03:30→20:48)
[2017-10-24] MEDS: ACETAMINOPHEN 1000MG/100ML IV 100 ML IVPB SCH ×4 (03:30→20:48)
[2017-10-24] MEDS: 1/2 NS + KCL 20 MEQ 1,000 ML IV SCH ×4 (03:49→20:48)
[2017-10-24 05:52] LABS: BASOPHILS % 0.2 % (0.0-2.0); HEMATOCRIT 33.3 % (37.0-47.0); HEMOGLOBIN 11.6 g/dl (12.0-16.0); LYMPHOCYTES # 0.9 10^3/ul (0.8-2.9); LYMPHOCYTES % 14.2 % (15.0-51.0); MEAN CORPUSCULAR HGB CONC 34.8 g/dl (32.0-37.0); MEAN PLATELET VOLUME 10.2 fl (7.4-10.4); MONOCYTE # 0.5 10^3/ul (0.3-0.9); MONOCYTES % 7.2 % (0.0-11.0); NEUTROPHILS % 78.1 % (39.0-77.0); PLATELET COUNT 122 10^3/UL (140-415); RED BLOOD COUNT 3.62 10^6/ul (4.20-5.40); RED CELL DISTRIBUTION WIDTH 12.1 % (11.5-14.5); WHITE BLOOD COUNT 6.4 10^3/ul (4.8-10.8)
[2017-10-24 06:18] LABS: ALBUMIN 3.7 g/dl (3.3-4.9); ALBUMIN/GLOBULIN RATIO 0.97; BILIRUBIN,INDIRECT 1.4 mg/dl (0-1.1); BILIRUBIN,TOTAL 1.4 mg/dl (0.2-1.3); CALCIUM 9.2 mg/dl (8.4-10.2); CREATININE 0.46 mg/dl (0.44-1.00); MAGNESIUM 2.1 mg/dl (1.7-2.5); POTASSIUM 4.2 mmol/L (3.5-5.1); TOTAL PROTEIN 7.5 g/dl (6.1-8.1)
[2017-10-24] MEDS: metFORMIN 500 MG TAB PO SCH ×2 (07:50→17:55)
[2017-10-24 08:05] VITALS: BP 112/63; RESP 18
--- NOTE | 2017-10-24 08:08 | PN ---
Date/Time of Note Date/Time of Note DATE: 10/24/17 TIME: 08:04 Assessment/Plan Lines/Catheters IV Catheter Type (from Nrsg): Peripheral IV Avery in Place (from Nrsg): No Assessment/Plan Assessment/Plan POD #3 s/p ACDF C6-7 with D/C HW C5-6 patient c/o difficulty breathing, pain with swallowing likely 2/2 hematoma vs. recurrent laryngeal nerve injury will continue to require monitoring of RR, sats swallow eval with OT still pending Subjective 24 Hr Interval Summary c/o trapezial pain and tightness c/o difficulty breathing, lump in throat Exam/Review of Systems Vital Signs Vitals Vital Signs Date Time Temp Pulse Resp B/P Pulse Ox O2 Delivery O2 Flow Rate FiO2 10/24/17 01:33 69 19 138/62 95 10/23/17 20:02 98.6 10/21/17 22:00 Nasal Cannula 2.0 Intake and Output 10/23/17 10/23/17 10/24/17 15:00 23:00 07:00 Intake Total 200 ml 900 ml 860 ml Balance 200 ml 900 ml 860 ml Exam Free Text/Dictation AOx3 right hand numbness delt, tricep, bicep strength 4/5 limited in part due to pain pulses palpable incision c/d/i MRI C-spine 10/23 reveals anterior hematoma in upper cervical spine area Results Result Diagram: 10/24/17 0510 10/24/17 0510 JAMIR LAKE PA-C Oct 24, 2017 08:08
--- NOTE | 2017-10-24 08:12 | CONS ---
Date/Time of Note Date/Time of Note DATE: 10/24/17 TIME: 08:06 Consult Date/Type/Reason Admit Date/Time Oct 21, 2017 at 12:02 Initial Consult Date 10/17/2017 Type of Consultation: internal medicine/endo Reason for Consultation internal medicine and endo f/u Ordering Provider: SHAN KAHN MD Subjective complaining of trouble swallowing cough and occaisional sob.also has neck and throat pain Objective Vital Signs Date Time Temp Pulse Resp B/P Pulse Ox O2 Delivery O2 Flow Rate FiO2 10/24/17 08:05 98.0 56 18 112/63 95 10/21/17 22:00 Nasal Cannula 2.0 Intake and Output 10/23/17 10/23/17 10/24/17 15:00 23:00 07:00 Intake Total 200 ml 900 ml 860 ml Balance 200 ml 900 ml 860 ml Exam vss heent tender neck area at surgical site lungs clear no obvious wheezing noted heart regular rhythm Results/Medications Result Diagram: 10/24/17 0510 10/24/17 0510 Results 24 hrs Laboratory Tests Test 10/23/17 08:35 10/23/17 08:48 10/23/17 12:49 10/23/17 17:35 Blood Gas Specimen Source Blood arterial Arterial Blood Date Drawn 10/23/2017 8:50:15 AM Arterial Blood pH (Temp corrected) 7.457 H Arterial Blood pCO2 (Temp correct) 36.3 Arterial Blood pO2 (Temp corrected) 81.0 Arterial Blood HCO3 25.1 Arterial Blood Base Excess 1.5 Arterial Blood Oxygen Saturation 96.3 Vinh Test ACCEPTAB Arterial Blood Gas Puncture Site Left Radial Arterial Blood Carboxyhemoglobin 0.6 Arterial Blood Methemoglobin 0.1 Blood Gas A-a O2 Differential 25.3 H Oxyhemoglobin Percent 95.6 Total Hemoglobin 14.0 Blood Gas Temperature 37.0 Blood Gas Modality ROOM AIR FiO2 21.0 Blood Gas Notified Whom JLD Blood Gas Notified Time 10/23/2017 8:59:13 AM Bedside Glucose 118 139 137 Test 10/23/17 21:18 10/24/17 05:10 Bedside Glucose 231 H White Blood Count 6.4 Red Blood Count 3.62 L Hemoglobin 11.6 L Hematocrit 33.3 L Mean Corpuscular Volume 92.0 Mean Corpuscular Hemoglobin 32.0 Mean Corpuscular Hemoglobin Concent 34.8 Red Cell Distribution Width 12.1 Platelet Count 122 L Mean Platelet Volume 10.2 Neutrophils % 78.1 H Lymphocytes % 14.2 L Monocytes % 7.2 Eosinophils % 0.0 Basophils % 0.2 Nucleated Red Blood Cells % 0.0 Neutrophils # 5.0 Lymphocytes # 0.9 Monocytes # 0.5 Eosinophils # 0.0 Basophils # 0.0 Nucleated Red Blood Cells # 0.0 Sodium Level 143 Potassium Level 4.2 Chloride Level 106 Carbon Dioxide Level 27 Anion Gap 14 Blood Urea Nitrogen 10 Creatinine 0.46 Glucose Level 163 Calcium Level 9.2 Magnesium Level 2.1 Total Bilirubin 1.4 H Direct Bilirubin 0.00 Indirect Bilirubin 1.4 H Aspartate Amino Transf (AST/SGOT) 43 Alanine Aminotransferase (ALT/SGPT) 67 Alkaline Phosphatase 66 Total Protein 7.5 Albumin 3.7 Globulin 3.80 H Albumin/Globulin Ratio 0.97 Medications Current Medications Dextrose/Sodium Chloride 1,000 ml @ 100 mls/hr Q10H IV ; Start 10/21/17 at 15: 30 Potassium Chloride/Sodium Chloride (1/2 NS + KCl 20 Meq) 1,000 ml @ 100 mls/hr Q10H IV Last administered on 10/24/17 04:51; Admin Dose 100 MLS/HR; Start 10/21/17 at 15:49 Acetaminophen/ Hydrocodone Bitart ([place] (10/325)) 1 tab Q4H PRN PO PAIN LEVEL 1-5; Start 10/22/17 at 10:00 Acetaminophen/ Hydrocodone Bitart ([place] (10/325)) 2 tab Q4H PRN PO PAIN LEVEL 6-10; Start 10/22/17 at 10:00 Hydromorphone HCl (Dilaudid) 0.2 mg Q1H PRN IV BREAKTHROUGH PAIN Last administered on 10/22/17 00:39; Admin Dose 0.2 MG; Start 10/21/17 at 16:00 Ondansetron HCl (Zofran Inj) 4 mg Q6H PRN IV NAUSEA AND/OR VOMITING Last administered on 10/23/17 17:38; Admin Dose 4 MG; Start 10/21/17 at 16:00 Bisacodyl (Dulcolax Supp) 10 mg DAILY PRN SD CONSTIPATION; Start 10/21/17 at 16 :00 Docusate Sodium (Colace) 100 mg BID PO Last administered on 10/23/17 21:14; Admin Dose 100 MG; Start 10/21/17 at 21:00 Al Hydrox/Mg Hydrox/Simethicone (Mag-Al Plus) 15 ml Q6H PRN PO CONSTIPATION/ DYSPEPSIA; Start 10/21/17 at 16:00 Acetaminophen (Tylenol Tab) 650 mg Q4H PRN PO ESCALANTE OR TEMP GREATER THAN 101.3F; Start 10/21/17 at 16:00 Cyclobenzaprine HCl (Flexeril) 10 mg TID PRN PO MUSCLE SPASMS Last administered on 10/23/17 09:24; Admin Dose 10 MG; Start 10/21/17 at 16:00 Phenol (Cepastat Lozenge) 1 lozenge PRN PRN MT SORE THROAT Last administered on 10/23/17 09:24; Admin Dose 1 LOZENGE; Start 10/21/17 at 16:00 Diphenhydramine HCl (Benadryl) 25 mg Q6H PRN IV ITCHING Last administered on 15:08; Admin Dose 25 MG; Start 10/21/17 at 16:00 Naloxone HCl (Narcan) 0.2 mg Q2M PRN IV RR 8 BREATHS/MIN OR LESS; Start at 16:00 Insulin Glargine (Lantus) 20 unit QHS SC Last administered on 10/23/17 21:24; Admin Dose 20 UNIT; Start 10/21/17 at 21:00 Trazodone HCl (Desyrel) 150 mg QHS PO ; Start 10/21/17 at 21:00 Diagnostic Test (Pha) (Accu-Chek) 1 ea 02 XX ; Start 10/22/17 at 02:00 Miscellaneous Information 1 ea NOTE XX ; Start 10/21/17 at 20:00 Glucose (Glutose) 15 gm Q15M PRN PO DECREASED GLUCOSE; Start 10/21/17 at 20:00 Glucose (Glutose) 22.5 gm Q15M PRN PO DECREASED GLUCOSE; Start 10/21/17 at 20: 00 Dextrose (D50w Syringe) 25 ml Q15M PRN IV DECREASED GLUCOSE; Start 10/21/17 at 20:00 Dextrose (D50w Syringe) 50 ml Q15M PRN IV DECREASED GLUCOSE; Start 10/21/17 at 20:00 Glucagon (Glucagen) 1 mg Q15M PRN IM DECREASED GLUCOSE; Start 10/21/17 at 20:00 Glucose (Glutose) 15 gm Q15M PRN BUCCAL DECREASED GLUCOSE; Start 10/21/17 at 20 :00 Hydromorphone HCl (Dilaudid PRECISION AGRICULTURE TECHNICIAN) PRECISION AGRICULTURE TECHNICIAN to be started in PACU Q4PCA IV Last administered on 10/23/17 15:09; Admin Dose 6 MG; Start 10/22/17 at 08:00 Phenol (Cepastat Lozenge) 1 lozenge Q1H PRN MT throat pain; Start 10/22/17 at 08:00 Magnesium Oxide 400 mg 400 mg BID PO Last administered on 10/22/17 21:28; Admin Dose 400 MG; Start 10/22/17 at 09:00 Acetaminophen (Ofirmev 1000mg/ 100ml Iv) 100 ml @ 400 mls/hr Q6H IVPB Last administered on 10/23/17 21:15; Admin Dose 400 MLS/HR; Start 10/23/17 at 09:30 Assessment/Plan Chief Complaint/Hosp Course neck pain and trouble swallowing main complaint will try some lozenges.will adjust insulin based on intake Problems: Additional Assessment/Plan await results of swallowing test lab platelet ct. much betterwbc ok.if symptoms persist consider chest ct. KELLY CHANDRA MD Oct 24, 2017 08:12
[2017-10-24] MEDS: MAGNESIUM OXIDE 400 MG TAB PO SCH ×2 (08:37→20:33)
[2017-10-24] MEDS: DOCUSATE SODIUM 100 MG CAP PO SCH ×2 (08:52→20:34)
[2017-10-24] MEDS: INSULIN ASPART [NOVOLOG] 3 ML PEN SC SCH ×4 (08:55→20:42)
[2017-10-24] MEDS: HYDROmorphONE 0.2 MG/ML PCA IV SCH (11:54)
[2017-10-24 14:53] VITALS: BP 105/59; RESP 18
[2017-10-24] MEDS: ONDANSETRON 4 MG INJ IV PRN (14:54)
[2017-10-24 19:25] VITALS: BP 129/71; RESP 18
[2017-10-24] MEDS: DIPHENHYDRAMINE 50 MG INJ IV PRN (20:00)
[2017-10-24] MEDS: traZODone 50 MG TAB PO SCH (20:32)
[2017-10-24] MEDS: INSULIN GLARGINE [LANtus] 3 ML PEN SC SCH (20:40)
[2017-10-24] MEDS: ZOLPIDEM 5 MG TAB PO PRN (20:47)
[2017-10-25] MEDS: ACCU-CHEK XX SCH (01:12)
[2017-10-25] MEDS: ACETAMINOPHEN 1000MG/100ML IV 100 ML IVPB SCH ×4 (03:25→21:25)
[2017-10-25 03:49] VITALS: BP 110/56; RESP 18
[2017-10-25] MEDS: HYDROmorphONE 0.2 MG/ML PCA IV SCH (06:44)
[2017-10-25] MEDS: metFORMIN 500 MG TAB PO SCH ×2 (07:50→17:55)
[2017-10-25] MEDS: INSULIN ASPART [NOVOLOG] 3 ML PEN SC SCH ×4 (07:50→21:00)
--- NOTE | 2017-10-25 08:10 | CONS ---
Date/Time of Note Date/Time of Note DATE: 10/25/17 TIME: 08:03 Consult Date/Type/Reason Admit Date/Time Oct 21, 2017 at 12:02 Initial Consult Date 10/17/2017 Type of Consultation: internal medicine/endo Reason for Consultation internal medicine and endo f/u Ordering Provider: SHAN KAHN MD Subjective had hard night cough and sob and nausea,still can't swallow without pain Objective Vital Signs Date Time Temp Pulse Resp B/P Pulse Ox O2 Delivery O2 Flow Rate FiO2 10/25/17 05:00 19 10/25/17 03:49 97.8 54 110/56 95 10/21/17 22:00 Nasal Cannula 2.0 Intake and Output 10/24/17 10/24/17 10/25/17 14:59 22:59 06:59 Intake Total 100 ml 1600 ml 1200 ml Balance 100 ml 1600 ml 1200 ml Exam vss heent scar tender anterior cervical arealungs scattered rhonchi heart regular [id number] Results/Medications Result Diagram: 10/24/17 0510 10/24/17 0510 Results 24 hrs Laboratory Tests Test 10/24/17 08:18 10/24/17 12:31 10/24/17 17:39 10/24/17 20:36 Bedside Glucose 229 H 127 138 173 Medications Current Medications Dextrose/Sodium Chloride 1,000 ml @ 100 mls/hr Q10H IV ; Start 10/21/17 at 15: 30 Potassium Chloride/Sodium Chloride (1/2 NS + KCl 20 Meq) 1,000 ml @ 100 mls/hr Q10H IV Last administered on 10/24/17 20:48; Admin Dose 100 MLS/HR; Start 10/21/17 at 15:49 Acetaminophen/ Hydrocodone Bitart ([place] (10/325)) 1 tab Q4H PRN PO PAIN LEVEL 1-5; Start 10/22/17 at 10:00 Acetaminophen/ Hydrocodone Bitart ([place] (10/325)) 2 tab Q4H PRN PO PAIN LEVEL 6-10; Start 10/22/17 at 10:00 Hydromorphone HCl (Dilaudid) 0.2 mg Q1H PRN IV BREAKTHROUGH PAIN Last administered on 10/22/17 00:39; Admin Dose 0.2 MG; Start 10/21/17 at 16:00 Ondansetron HCl (Zofran Inj) 4 mg Q6H PRN IV NAUSEA AND/OR VOMITING Last administered on 10/24/17 14:54; Admin Dose 4 MG; Start 10/21/17 at 16:00 Bisacodyl (Dulcolax Supp) 10 mg DAILY PRN SD CONSTIPATION; Start 10/21/17 at 16 :00 Docusate Sodium (Colace) 100 mg BID PO Last administered on 10/24/17 20:34; Admin Dose 100 MG; Start 10/21/17 at 21:00 Al Hydrox/Mg Hydrox/Simethicone (Mag-Al Plus) 15 ml Q6H PRN PO CONSTIPATION/ DYSPEPSIA; Start 10/21/17 at 16:00 Acetaminophen (Tylenol Tab) 650 mg Q4H PRN PO ESCALANTE OR TEMP GREATER THAN 101.3F; Start 10/21/17 at 16:00 Cyclobenzaprine HCl (Flexeril) 10 mg TID PRN PO MUSCLE SPASMS Last administered on 10/23/17 09:24; Admin Dose 10 MG; Start 10/21/17 at 16:00 Phenol (Cepastat Lozenge) 1 lozenge PRN PRN MT SORE THROAT Last administered on 10/23/17 09:24; Admin Dose 1 LOZENGE; Start 10/21/17 at 16:00 Diphenhydramine HCl (Benadryl) 25 mg Q6H PRN IV ITCHING Last administered on 20:00; Admin Dose 25 MG; Start 10/21/17 at 16:00 Naloxone HCl (Narcan) 0.2 mg Q2M PRN IV RR 8 BREATHS/MIN OR LESS; Start at 16:00 Insulin Glargine (Lantus) 20 unit QHS SC Last administered on 10/24/17 20:40; Admin Dose 20 UNIT; Start 10/21/17 at 21:00 Trazodone HCl (Desyrel) 150 mg QHS PO ; Start 10/21/17 at 21:00 Diagnostic Test (Pha) (Accu-Chek) 1 ea 02 XX ; Start 10/22/17 at 02:00 Miscellaneous Information 1 ea NOTE XX ; Start 10/21/17 at 20:00 Glucose (Glutose) 15 gm Q15M PRN PO DECREASED GLUCOSE; Start 10/21/17 at 20:00 Glucose (Glutose) 22.5 gm Q15M PRN PO DECREASED GLUCOSE; Start 10/21/17 at 20: 00 Dextrose (D50w Syringe) 25 ml Q15M PRN IV DECREASED GLUCOSE; Start 10/21/17 at 20:00 Dextrose (D50w Syringe) 50 ml Q15M PRN IV DECREASED GLUCOSE; Start 10/21/17 at 20:00 Glucagon (Glucagen) 1 mg Q15M PRN IM DECREASED GLUCOSE; Start 10/21/17 at 20:00 Glucose (Glutose) 15 gm Q15M PRN BUCCAL DECREASED GLUCOSE; Start 10/21/17 at 20 :00 Hydromorphone HCl (Dilaudid ORAL AND MAXILLOFACIAL SURGEON) ORAL AND MAXILLOFACIAL SURGEON to be started in PACU Q4PCA IV Last administered on 10/25/17 06:44; Admin Dose 6 MG; Start 10/22/17 at 08:00 Phenol (Cepastat Lozenge) 1 lozenge Q1H PRN MT throat pain; Start 10/22/17 at 08:00 Magnesium Oxide 400 mg 400 mg BID PO Last administered on 10/22/17 21:28; Admin Dose 400 MG; Start 10/22/17 at 09:00 Acetaminophen (Ofirmev 1000mg/ 100ml Iv) 100 ml @ 400 mls/hr Q6H IVPB Last administered on 10/25/17 03:25; Admin Dose 400 MLS/HR; Start 10/23/17 at 09:30 Assessment/Plan Chief Complaint/Hosp Course persistent cough.and sob also trouble swallowing persists. neck pain and trouble swallowing main complaint will try some lozenges.will adjust insulin based on intake Problems: Additional Assessment/Plan plan will obtain lab data,ct of chest,pulmonary consultation [facility] Silva MD Oct 25, 2017 08:10
[2017-10-25 08:23] VITALS: BP 142/78; PULSE 70; RESP 14
[2017-10-25] MEDS: MAGNESIUM OXIDE 400 MG TAB PO SCH ×2 (09:00→21:00)
[2017-10-25] MEDS: DEXTROSE 5%-0.9% NACL 1,000 ML IV SCH ×2 (09:30→19:30)
[2017-10-25] MEDS: DOCUSATE SODIUM 100 MG CAP PO SCH ×2 (09:54→21:13)
--- NOTE | 2017-10-25 11:01 | RADRPT ---
PROCEDURE: CT SCAN chest without IV contrast CLINICAL INDICATION: Neck pain, cough, difficulty swallowing TECHNIQUE: Transaxial slices through the chest was obtained without IV contrast.. Additional sagit carmen and coronal MPR images were acquired. . DICOM images available One of more of the following dose reduction techniques were utilized: -automatic exposure control.-a djustment of the mA and/or kV according to patient size. -Use of iterative reconstruction technique. Contrast: None Radiation Dose: CTDI 16.04 mGy. DLP 638.19 mGy-cm. COMPARISON: None FINDINGS: There is hardware noted over the C6-7 vertebral body. Low density areas noted anterior to the left l obe of thyroid and left neck the tissues. Correlate regarding postsurgical changes versus abnormal a ir. Mediastinal structures demonstrate normal vascular anatomy. No significant mediastinal adenopath y noted. Cardiomegaly is seen without significant pericardial effusion. Small retrocardiac hiatal he rnia noted. Degenerative changes noted in the lower dorsal spine. Lung windows demonstrate symmetric lung volumes with no subpleural blebs, pneumothorax, pleural effu kaycee, parenchymal infiltrates or interstitial nodularity noted. No abnormal calcifications seen. CT upper abdomen: Fatty liver, nondistended stomach, normal spleen, adrenals, pancreas, distended g allbladder, normal upper pole left kidneys are seen. IMPRESSION: Abnormal air pockets noted in the left lower neck and lateral to the thyroid gland with thickening o f the subcutaneous tissues, image 4 - 19, image 4 - . Correlate clinically, to rule out postop esquivel es. Small retrocardiac hiatal hernia. RPTAT: AAOO Physician Tony Date Time Electronically viewed and signed by Physician Tony on 10/25/2017 11:01 MB/
[2017-10-25] MEDS: CEPASTAT LOZENGE MT PRN (11:43)
--- NOTE | 2017-10-25 11:46 | PN ---
Date/Time of Note Date/Time of Note DATE: 10/25/17 TIME: 11:44 Assessment/Plan Lines/Catheters IV Catheter Type (from Nrs): Peripheral IV Avery in Place (from Nrs): No Assessment/Plan Assessment/Plan The patient is status post anterior cervical fusion. She has difficulty swallowing. Postoperative CT scan showed small seroma. Surgical evacuation is not required. Chest CT has been completed without any significant abnormalities. Swallow study could not be performed due to difficulty with diet. Patient occasionally has breathy voice and she states this is due to discomfort. There is concern for recurrent laryngeal nerve injury. She may require ENT consult as an outpatient. I will obtain acute rehab consult for the patient but she may be able to be discharged tomorrow if her swallowing improves. She has no breathing difficulty. Subjective 24 Hr Interval Summary Complains of sore throat and difficulty swallowing Exam/Review of Systems Vital Signs Vitals Vital Signs Date Time Temp Pulse Resp B/P Pulse Ox O2 Delivery O2 Flow Rate FiO2 10/25/17 08:23 97.8 70 14 142/78 97 Room Air 10/21/17 22:00 2.0 Intake and Output 10/24/17 10/24/17 10/25/17 14:59 22:59 06:59 Intake Total 100 ml 1600 ml 1200 ml Balance 100 ml 1600 ml 1200 ml Exam Free Text/Dictation Neurovascularly intact. Incision is dry. There is no signs of infection. No palpable masses in the neck. Results Result Diagram: 10/24/17 0510 10/24/17 0510 SHAN KAHN MD Oct 25, 2017 11:46
[2017-10-25 12:15] LABS: BASOPHILS % 0.6 % (0.0-2.0); EOSINOPHILS # 0.2 10^3/ul (0.0-0.5); EOSINOPHILS % 2.9 % (0.0-7.0); HEMATOCRIT 33.5 % (37.0-47.0); HEMOGLOBIN 11.5 g/dl (12.0-16.0); LYMPHOCYTES # 2.8 10^3/ul (0.8-2.9); LYMPHOCYTES % 40.8 % (15.0-51.0); MEAN CORPUSCULAR HEMOGLOBIN 32.3 pg (29.0-33.0); MEAN CORPUSCULAR HGB CONC 34.3 g/dl (32.0-37.0); MEAN CORPUSCULAR VOLUME 94.1 fl (82.0-101.0); MEAN PLATELET VOLUME 9.9 fl (7.4-10.4); MONOCYTE # 0.6 10^3/ul (0.3-0.9); NEUTROPHIL # 3.3 10^3/ul (1.6-7.5); NEUTROPHILS % 47.4 % (39.0-77.0); PLATELET COUNT 160 10^3/UL (140-415); RED BLOOD COUNT 3.56 10^6/ul (4.20-5.40); RED CELL DISTRIBUTION WIDTH 12.3 % (11.5-14.5)
[2017-10-25 12:37] LABS: CALCIUM 8.9 mg/dl (8.4-10.2); CREATININE 0.57 mg/dl (0.44-1.00); POTASSIUM 3.5 mmol/L (3.5-5.1)
[2017-10-25] MEDS: ONDANSETRON 4 MG INJ IV PRN ×2 (14:06→21:39)
[2017-10-25] MEDS: 1/2 NS + KCL 20 MEQ 1,000 ML IV SCH ×2 (15:22→19:49)
--- NOTE | 2017-10-25 15:58 | CONS ---
DATE OF ADMISSION: 10/21/2017 DATE OF CONSULTATION: REASON FOR CONSULTATION: Shortness of breath. Thank you, Dr. Block, for this consultation. HISTORY OF PRESENT ILLNESS: This is a pleasant 62-year-old lady, no past respiratory problems. She came in for C-spine surgery had anterior cervical diskectomy and spinal cord decompression at C6 an d 7 performed, anterior cervical fusion at C6 and C7 performed, intraoperatively no complications. The patient remains stable postoperatively; however, has had persistent dysphagia and respiratory di scomfort since that time. Subsequent CT of the chest was performed yesterday, demonstrated abnormal air pockets in the lower left neck lateral to the thyroid gland with associated subcutaneous thicke elise. These are likely postoperative changes. The patient denies any history of tobacco use. No h istory of asthma. No current hemoptysis or hematemesis. PAST MEDICAL HISTORY: Type 2 diabetes. MEDICATIONS: Per chart. ALLERGIES: 1. CONTRAST. 2. IBUPROFEN. 3. PAROXETINE. SOCIAL HISTORY: Nonsmoker, no alcohol, no history of drug use. FAMILY HISTORY: Noncontributory. SYSTEMS REVIEW: A 12-point review of systems was negative other than that mentioned above. PHYSICAL EXAMINATION: GENERAL: Well-nourished, well-developed lady, comfortable at rest, no acute distress. VITAL SIGNS: Currently afebrile, pulse is 70, blood pressure 140/78, O2 saturation 97% on room air. NECK: Supple. No JVD or lymphadenopathy. CARDIAC: S1, S2, no added sounds or murmurs. CHEST: Diminished air entry bilaterally. ABDOMEN: Soft, nontender. No guarding or rebound. EXTREMITIES: No cyanosis, clubbing. NEUROLOGIC: Generalized weakness, but no focal deficits. LABORATORY DATA: White count 7, hemoglobin 11.5, platelets of 160. BUN 9, creatinine 0.57. CT nec k as above. IMPRESSION AND PLAN: Status post C-spine surgery with postop edema and air pockets likely causing c ompressive symptoms in the trachea and esophagus. At this point, I would continue with supportive c are. I do not think steroids would be of benefit. Patient advised to continue with aspiration prec autions, incentive spirometry and activities as tolerated. Continue to monitor closely. Thank you again, Dr. Block. Dictated By: JIAN CAMEJO/JONA Conf#: [id number] [facility]#: [id number] CC: KELLY BLOCK MD; SHAN KAHN MD;*[facility]*
[2017-10-25 19:10] VITALS: BP 130/67; RESP 20
[2017-10-25] MEDS: traZODone 50 MG TAB PO SCH (21:00)
[2017-10-25] MEDS: INSULIN GLARGINE [LANtus] 3 ML PEN SC SCH (21:34)
[2017-10-25] MEDS: ZOLPIDEM 5 MG TAB PO PRN (21:39)
[2017-10-26] MEDS: ACCU-CHEK XX SCH (02:00)
[2017-10-26] MEDS: 1/2 NS + KCL 20 MEQ 1,000 ML IV SCH ×3 (02:53→22:23)
[2017-10-26] MEDS: ACETAMINOPHEN 1000MG/100ML IV 100 ML IVPB SCH ×4 (02:54→22:10)
[2017-10-26] MEDS: DEXTROSE 5%-0.9% NACL 1,000 ML IV SCH ×2 (05:30→15:30)
[2017-10-26] MEDS: INSULIN ASPART [NOVOLOG] 3 ML PEN SC SCH ×4 (07:50→21:00)
[2017-10-26] MEDS: metFORMIN 500 MG TAB PO SCH ×2 (07:50→17:55)
[2017-10-26 08:43] VITALS: BP 140/62; RESP 18
[2017-10-26] MEDS: MAGNESIUM OXIDE 400 MG TAB PO SCH ×2 (09:00→21:00)
[2017-10-26] MEDS: DOCUSATE SODIUM 100 MG CAP PO SCH ×2 (09:26→20:41)
[2017-10-26] MEDS: ONDANSETRON 4 MG INJ IV PRN (09:38)
[2017-10-26 15:10] VITALS: BP 141/74; RESP 20
[2017-10-26] MEDS: CEPASTAT LOZENGE MT PRN ×2 (16:23→20:53)
--- NOTE | 2017-10-26 19:22 | CONS ---
Date/Time of Note Date/Time of Note DATE: 10/26/17 TIME: 12:00 Late entry Assessment/Plan Assessment/Plan Problems: (1) Diabetes Comment: well controlled Qualifiers: Diabetes mellitus type: type 2 Diabetic retinopathy severity: with moderate nonproliferative retinopathy (2) Cervical disc disease Comment: POD 5 Awaiting possible transfer to acute rehab. (3) Dysphagia Comment: Dysphagia with hoarseness. Inflammatory vs Laryngeal nerve injury. Would benefit from ENT consult which we will obtain once patient transferred to acute rehab. Additional Assessment/Plan Clinically showing some improvement Consultation Date/Type/Reason Admit Date/Time Oct 21, 2017 at 12:02 Initial Consult Date Type of Consultation: internal medicine/endo Referring Provider: SHAN KAHN MD 24 HR Interval Summary Free Text/Dictation Still complains of cough and hoarse voice. Starting to tolerate applesauce. Exam/Review of Systems Vital Signs Vitals Vital Signs Date Time Temp Pulse Resp B/P Pulse Ox O2 Delivery O2 Flow Rate FiO2 10/26/17 18:57 17 10/26/17 15:10 98.5 70 141/74 95 10/25/17 08:23 Room Air Intake and Output 10/25/17 10/25/17 10/26/17 15:00 23:00 07:00 Intake Total 100 ml 2000 ml 1460 ml Balance 100 ml 2000 ml 1460 ml Exam Constitutional: alert, oriented, well developed Neck: other (tender at incision), supple Respiratory: clear to auscultation Cardiovascular: regular rate and rhythm Gastrointestinal: soft Musculoskeletal: nl extremities to inspection Results POC glucose reviewed Result Diagram: 10/25/17 1119 10/25/17 1119 Results 24 hrs Laboratory Tests Test 10/25/17 21:25 10/26/17 08:34 10/26/17 12:51 10/26/17 17:48 Bedside Glucose 177 115 109 214 Medications Medications Current Medications Dextrose/Sodium Chloride 1,000 ml @ 100 mls/hr Q10H IV ; Start 10/21/17 at 15: 30 Potassium Chloride/Sodium Chloride (1/2 NS + KCl 20 Meq) 1,000 ml @ 100 mls/hr Q10H IV Last administered on 10/26/17t 13:17; Admin Dose 100 MLS/HR; Start 10/21/17 at 15:49 Acetaminophen/ Hydrocodone Bitart ([place] (10/325)) 1 tab Q4H PRN PO PAIN LEVEL 1-5; Start 10/22/17 at 10:00 Acetaminophen/ Hydrocodone Bitart ([place] ()) 2 tab Q4H PRN PO PAIN LEVEL 6-10; Start 10/22/17 at 10:00 Hydromorphone HCl (Dilaudid) 0.2 mg Q1H PRN IV BREAKTHROUGH PAIN Last administered on 10/22/17 00:39; Admin Dose 0.2 MG; Start 10/21/17 at 16:00 Ondansetron HCl (Zofran Inj) 4 mg Q6H PRN IV NAUSEA AND/OR VOMITING Last administered on 10/26/17 09:38; Admin Dose 4 MG; Start 10/21/17 at 16:00 Bisacodyl (Dulcolax Supp) 10 mg DAILY PRN [place] CONSTIPATION; Start 10/21/17 at 16 :00 Docusate Sodium (Colace) 100 mg BID PO Last administered on 10/26/17 09:26; Admin Dose 100 MG; Start 10/21/17 at 21:00 Al Hydrox/Mg Hydrox/Simethicone (Mag-Al Plus) 15 ml Q6H PRN PO CONSTIPATION/ DYSPEPSIA; Start 10/21/17 at 16:00 Acetaminophen (Tylenol Tab) 650 mg Q4H PRN PO ESCALANTE OR TEMP GREATER THAN 101.3F; Start 10/21/17 at 16:00 Cyclobenzaprine HCl (Flexeril) 10 mg TID PRN PO MUSCLE SPASMS Last administered on 10/23/17 09:24; Admin Dose 10 MG; Start 10/21/17 at 16:00 Phenol (Cepastat Lozenge) 1 lozenge PRN PRN [place] SORE THROAT Last administered on 10/26/17 16:23; Admin Dose 1 LOZENGE; Start 10/21/17 at 16:00 Diphenhydramine HCl (Benadryl) 25 mg Q6H PRN IV ITCHING Last administered on 20:00; Admin Dose 25 MG; Start 10/21/17 at 16:00 Naloxone HCl (Narcan) 0.2 mg Q2M PRN IV RR 8 BREATHS/MIN OR LESS; Start at 16:00 Insulin Glargine (Lantus) 20 unit QHS SC Last administered on 10/25/17 21:34; Admin Dose 20 UNIT; Start 10/21/17 at 21:00 Trazodone HCl (Desyrel) 150 mg QHS PO ; Start 10/21/17 at 21:00 Diagnostic Test (Pha) (Accu-Chek) 1 ea 02 XX ; Start 10/22/17 at 02:00 Miscellaneous Information 1 ea NOTE XX ; Start 10/21/17 at 20:00 Glucose (Glutose) 15 gm Q15M PRN PO DECREASED GLUCOSE; Start 10/21/17 at 20:00 Glucose (Glutose) 22.5 gm Q15M PRN PO DECREASED GLUCOSE; Start 10/21/17 at 20: 00 Dextrose (D50w Syringe) 25 ml Q15M PRN IV DECREASED GLUCOSE; Start 10/21/17 at 20:00 Dextrose (D50w Syringe) 50 ml Q15M PRN IV DECREASED GLUCOSE; Start 10/21/17 at 20:00 Glucagon (Glucagen) 1 mg Q15M PRN IM DECREASED GLUCOSE; Start 10/21/17 at 20:00 Glucose (Glutose) 15 gm Q15M PRN BUCCAL DECREASED GLUCOSE; Start 10/21/17 at 20 :00 Hydromorphone HCl (Dilaudid LIBRARY ASSISTANT) LIBRARY ASSISTANT to be started in PACU Q4PCA IV Last administered on 10/25/17 06:44; Admin Dose 6 MG; Start 10/22/17 at 08:00 Phenol (Cepastat Lozenge) 1 lozenge Q1H PRN MT throat pain; Start 10/22/17 at 08:00 Magnesium Oxide 400 mg 400 mg BID PO Last administered on 10/22/17 21:28; Admin Dose 400 MG; Start 10/22/17 at 09:00 Acetaminophen (Ofirmev 1000mg/ 100ml Iv) 100 ml @ 400 mls/hr Q6H IVPB Last administered on 10/26/17 16:23; Admin Dose 400 MLS/HR; Start 10/23/17 at 09:30 JERSEY SALGADO MD Oct 26, 2017 19:21
[2017-10-26 19:25] VITALS: BP 130/79; RESP 18
--- NOTE | 2017-10-26 20:38 | CONS ---
Date/Time of Note Date/Time of Note DATE: 10/26/17 TIME: 20:36 Consult Date/Type/Reason Admit Date/Time Oct 21, 2017 at 12:02 Type of Consultation: Pulm Ordering Provider: SHAN KAHN MD Subjective c/o hoarseness and dysphagia. Objective Vital Signs Date Time Temp Pulse Resp B/P Pulse Ox O2 Delivery O2 Flow Rate FiO2 10/26/17 18:57 17 10/26/17 15:10 98.5 70 141/74 95 10/25/17 08:23 Room Air Intake and Output 10/25/17 10/25/17 10/26/17 15:00 23:00 07:00 Intake Total 100 ml 2000 ml 1460 ml Balance 100 ml 2000 ml 1460 ml Exam HEENT: Neck supple; no JVD; no LAD CVS: RRR, S1 and S2 CHEST: Clear ABD: Soft, NT, + BS EXT: No c/c/e Results/Medications Result Diagram: 10/25/17 1119 10/25/17 1119 Results 24 hrs Laboratory Tests Test 10/25/17 21:25 10/26/17 08:34 10/26/17 12:51 10/26/17 17:48 Bedside Glucose 177 115 109 214 Medications Current Medications Dextrose/Sodium Chloride 1,000 ml @ 100 mls/hr Q10H IV ; Start 10/21/17 at 15: 30 Potassium Chloride/Sodium Chloride (1/2 NS + KCl 20 Meq) 1,000 ml @ 100 mls/hr Q10H IV Last administered on 10/26/17 13:17; Admin Dose 100 MLS/HR; Start 10/21/17 at 15:49 Acetaminophen/ Hydrocodone Bitart ([place] (10/325)) 1 tab Q4H PRN PO PAIN LEVEL 1-5; Start 10/22/17 at 10:00 Acetaminophen/ Hydrocodone Bitart ([place] (10/325)) 2 tab Q4H PRN PO PAIN LEVEL 6-10; Start 10/22/17 at 10:00 Hydromorphone HCl (Dilaudid) 0.2 mg Q1H PRN IV BREAKTHROUGH PAIN Last administered on 10/22/17 00:39; Admin Dose 0.2 MG; Start 10/21/17 at 16:00 Ondansetron HCl (Zofran Inj) 4 mg Q6H PRN IV NAUSEA AND/OR VOMITING Last administered on 10/26/17 09:38; Admin Dose 4 MG; Start 10/21/17 at 16:00 Bisacodyl (Dulcolax Supp) 10 mg DAILY PRN [place] CONSTIPATION; Start 10/21/17 at 16 :00 Docusate Sodium (Colace) 100 mg BID PO Last administered on 10/26/17 09:26; Admin Dose 100 MG; Start 10/21/17 at 21:00 Al Hydrox/Mg Hydrox/Simethicone (Mag-Al Plus) 15 ml Q6H PRN PO CONSTIPATION/ DYSPEPSIA; Start 10/21/17 at 16:00 Acetaminophen (Tylenol Tab) 650 mg Q4H PRN PO ESCALANTE OR TEMP GREATER THAN 101.3F; Start 10/21/17 at 16:00 Cyclobenzaprine HCl (Flexeril) 10 mg TID PRN PO MUSCLE SPASMS Last administered on 10/23/17 09:24; Admin Dose 10 MG; Start 10/21/17 at 16:00 Phenol (Cepastat Lozenge) 1 lozenge PRN PRN [place] SORE THROAT Last administered on 10/26/17 16:23; Admin Dose 1 LOZENGE; Start 10/21/17 at 16:00 Diphenhydramine HCl (Benadryl) 25 mg Q6H PRN IV ITCHING Last administered on 20:00; Admin Dose 25 MG; Start 10/21/17 at 16:00 Naloxone HCl (Narcan) 0.2 mg Q2M PRN IV RR 8 BREATHS/MIN OR LESS; Start at 16:00 Insulin Glargine (Lantus) 20 unit QHS SC Last administered on 10/25/17 21:34; Admin Dose 20 UNIT; Start 10/21/17 at 21:00 Trazodone HCl (Desyrel) 150 mg QHS PO ; Start 10/21/17 at 21:00 Diagnostic Test (Pha) (Accu-Chek) 1 ea 02 XX ; Start 10/22/17 at 02:00 Miscellaneous Information 1 ea NOTE XX ; Start 10/21/17 at 20:00 Glucose (Glutose) 15 gm Q15M PRN PO DECREASED GLUCOSE; Start 10/21/17 at 20:00 Glucose (Glutose) 22.5 gm Q15M PRN PO DECREASED GLUCOSE; Start 10/21/17 at 20: 00 Dextrose (D50w Syringe) 25 ml Q15M PRN IV DECREASED GLUCOSE; Start 10/21/17 at 20:00 Dextrose (D50w Syringe) 50 ml Q15M PRN IV DECREASED GLUCOSE; Start 10/21/17 at 20:00 Glucagon (Glucagen) 1 mg Q15M PRN IM DECREASED GLUCOSE; Start 10/21/17 at 20:00 Glucose (Glutose) 15 gm Q15M PRN BUCCAL DECREASED GLUCOSE; Start 10/21/17 at 20 :00 Hydromorphone HCl (Dilaudid CABLE COVERER) CABLE COVERER to be started in PACU Q4PCA IV Last administered on 10/25/17 06:44; Admin Dose 6 MG; Start 10/22/17 at 08:00 Phenol (Cepastat Lozenge) 1 lozenge Q1H PRN MT throat pain; Start 10/22/17 at 08:00 Magnesium Oxide 400 mg 400 mg BID PO Last administered on 10/22/17 21:28; Admin Dose 400 MG; Start 10/22/17 at 09:00 Acetaminophen (Ofirmev 1000mg/ 100ml Iv) 100 ml @ 400 mls/hr Q6H IVPB Last administered on 10/26/17 16:23; Admin Dose 400 MLS/HR; Start 10/23/17 at 09:30 Assessment/Plan Additional Assessment/Plan IMP: 1. Dysphagia and hoarseness--s/p anterior C-spine surgery. 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 ENT eval of VC 2. Speech therapy eval in progress (? VSE) MALCOM SOLORZANO MD Oct 26, 2017 20:38
[2017-10-26] MEDS: ZOLPIDEM 5 MG TAB PO PRN (20:41)
[2017-10-26] MEDS: INSULIN GLARGINE [LANtus] 3 ML PEN SC SCH (20:51)
[2017-10-26] MEDS: traZODone 50 MG TAB PO SCH (21:00)
[2017-10-27] MEDS: DEXTROSE 5%-0.9% NACL 1,000 ML IV SCH ×2 (00:31→11:30)
[2017-10-27] MEDS: ACCU-CHEK XX SCH (01:05)
[2017-10-27] MEDS: ACETAMINOPHEN 1000MG/100ML IV 100 ML IVPB SCH ×2 (03:39→09:42)
[2017-10-27 07:34] VITALS: BP 140/63; RESP 18
[2017-10-27] MEDS: metFORMIN 500 MG TAB PO SCH (07:50)
[2017-10-27] MEDS: INSULIN ASPART [NOVOLOG] 3 ML PEN SC SCH ×2 (07:50→11:40)
[2017-10-27] MEDS: MAGNESIUM OXIDE 400 MG TAB PO SCH (08:37)
[2017-10-27] MEDS: DOCUSATE SODIUM 100 MG CAP PO SCH (09:42)
[2017-10-27] MEDS: 1/2 NS + KCL 20 MEQ 1,000 ML IV SCH (11:49)
[2017-10-27 14:30] VITALS: BP 134/82; RESP 18
--- NOTE | 2017-10-27 14:48 | DS ---
DATE OF ADMISSION: 10/21/2017 DATE OF DISCHARGE: 10/27/2017 ADMITTING DIAGNOSIS: Cervical stenosis. DISCHARGE DIAGNOSIS: Cervical stenosis. PROCEDURE: Patient was taken to the operating room on 10/21/2017 and underwent cervical fusion. HOSPITAL COURSE: The patient was admitted to the [facility] after undergoing above procedure. Postoperatively, she was having some issues with swallowing and dysphasia. Speech therapy was cons ulted, but they were unable to do a swallow evaluation. She underwent a CT scan of the chest and MR I of the neck. There was a small seroma, but no evidence of any vocal cord compression. She had no respiratory issues. I will evaluate her vocal cords as an outpatient, but at this time she was nasim med stable for discharge with followup arranged with the undersigned. Dictated By: SHAN ADEN/JONA Conf#: [id number] DID#: [id number]
--- NOTE | 2017-10-27 14:52 | CONS ---
Date/Time of Note Date/Time of Note DATE: 10/27/17 TIME: 14:50 Assessment/Plan Assessment/Plan Problems: (1) Diabetes Qualifiers: Diabetes mellitus type: type 2 Diabetic retinopathy severity: with moderate nonproliferative retinopathy (2) Cervical disc disease (3) Dysphagia Additional Assessment/Plan Clinically stable for discharge Consultation Date/Type/Reason Admit Date/Time Oct 21, 2017 at 12:02 Type of Consultation: endo/int medicine Referring Provider: SHAN KAHN MD 24 HR Interval Summary Free Text/Dictation Patient anxious to go home. Tolerating full liquid diet. Feels well enough to go home Exam/Review of Systems Vital Signs Vitals Vital Signs Date Time Temp Pulse Resp B/P Pulse Ox O2 Delivery O2 Flow Rate FiO2 10/27/17 07:34 97.1 74 18 140/63 94 10/25/17 08:23 Room Air Intake and Output 10/26/17 10/26/17 10/27/17 15:00 23:00 07:00 Intake Total 100 ml 1750 ml 580 ml Output Total 800 ml Balance 100 ml 950 ml 580 ml Exam Constitutional: alert, obese, oriented Neck: supple Respiratory: clear to auscultation, normal air movement Cardiovascular: regular rate and rhythm Gastrointestinal: soft Musculoskeletal: nl extremities to inspection Extremities: normal pulses Results POC glucose reviewed. Result Diagram: 10/25/17 1119 10/25/17 1119 Results 24 hrs Laboratory Tests Test 10/26/17 17:48 10/26/17 20:37 10/27/17 08:43 10/27/17 12:17 Bedside Glucose 214 138 106 128 Medications Medications Current Medications Dextrose/Sodium Chloride 1,000 ml @ 100 mls/hr Q10H IV ; Start 10/21/17 at 15: 30 Potassium Chloride/Sodium Chloride (1/2 NS + KCl 20 Meq) 1,000 ml @ 50 mls/hr Q20H IV Last administered on 10/26/17t 22:23; Admin Dose 100 MLS/HR; Start 10/21/17 at 15:49 Acetaminophen/ Hydrocodone Bitart ([place] (10/325)) 1 tab Q4H PRN PO PAIN LEVEL 1-5; Start 10/22/17 at 10:00 Acetaminophen/ Hydrocodone Bitart ([place] (10/325)) 2 tab Q4H PRN PO PAIN LEVEL 6-10; Start 10/22/17 at 10:00 Hydromorphone HCl (Dilaudid) 0.2 mg Q1H PRN IV BREAKTHROUGH PAIN Last administered on 10/22/17 00:39; Admin Dose 0.2 MG; Start 10/21/17 at 16:00 Ondansetron HCl (Zofran Inj) 4 mg Q6H PRN IV NAUSEA AND/OR VOMITING Last administered on 10/26/17 09:38; Admin Dose 4 MG; Start 10/21/17 at 16:00 Bisacodyl (Dulcolax Supp) 10 mg DAILY PRN [place] CONSTIPATION; Start 10/21/17 at 16 :00 Docusate Sodium (Colace) 100 mg BID PO Last administered on 10/27/17 09:42; Admin Dose 100 MG; Start 10/21/17 at 21:00 Al Hydrox/Mg Hydrox/Simethicone (Mag-Al Plus) 15 ml Q6H PRN PO CONSTIPATION/ DYSPEPSIA; Start 10/21/17 at 16:00 Acetaminophen (Tylenol Tab) 650 mg Q4H PRN PO ESCALANTE OR TEMP GREATER THAN 101.3F; Start 10/21/17 at 16:00 Cyclobenzaprine HCl (Flexeril) 10 mg TID PRN PO MUSCLE SPASMS Last administered on 10/23/17 09:24; Admin Dose 10 MG; Start 10/21/17 at 16:00 Phenol (Cepastat Lozenge) 1 lozenge PRN PRN [place] SORE THROAT Last administered on 10/26/17 20:53; Admin Dose 1 LOZENGE; Start 10/21/17 at 16:00 Diphenhydramine HCl (Benadryl) 25 mg Q6H PRN IV ITCHING Last administered on 20:00; Admin Dose 25 MG; Start 10/21/17 at 16:00 Naloxone HCl (Narcan) 0.2 mg Q2M PRN IV RR 8 BREATHS/MIN OR LESS; Start at 16:00 Insulin Glargine (Lantus) 20 unit QHS SC Last administered on 10/26/17 20:51; Admin Dose 20 UNIT; Start 10/21/17 at 21:00 Trazodone HCl (Desyrel) 150 mg QHS PO ; Start 10/21/17 at 21:00 Diagnostic Test (Pha) (Accu-Chek) 1 ea 02 XX ; Start 10/22/17 at 02:00 Miscellaneous Information 1 ea NOTE XX ; Start 10/21/17 at 20:00 Glucose (Glutose) 15 gm Q15M PRN PO DECREASED GLUCOSE; Start 10/21/17 at 20:00 Glucose (Glutose) 22.5 gm Q15M PRN PO DECREASED GLUCOSE; Start 10/21/17 at 20: 00 Dextrose (D50w Syringe) 25 ml Q15M PRN IV DECREASED GLUCOSE; Start 10/21/17 at 20:00 Dextrose (D50w Syringe) 50 ml Q15M PRN IV DECREASED GLUCOSE; Start 10/21/17 at 20:00 Glucagon (Glucagen) 1 mg Q15M PRN IM DECREASED GLUCOSE; Start 10/21/17 at 20:00 Glucose (Glutose) 15 gm Q15M PRN BUCCAL DECREASED GLUCOSE; Start 10/21/17 at 20 :00 Hydromorphone HCl (Dilaudid PSYCHOLOGY FELLOW) PSYCHOLOGY FELLOW to be started in PACU Q4PCA IV Last administered on 10/25/17 06:44; Admin Dose 6 MG; Start 10/22/17 at 08:00 Phenol (Cepastat Lozenge) 1 lozenge Q1H PRN MT throat pain; Start 10/22/17 at 08:00 Magnesium Oxide 400 mg 400 mg BID PO Last administered on 10/22/17 21:28; Admin Dose 400 MG; Start 10/22/17 at 09:00 Acetaminophen (Ofirmev 1000mg/ 100ml Iv) 100 ml @ 400 mls/hr Q6H IVPB Last administered on 10/27/17 09:42; Admin Dose 400 MLS/HR; Start 10/23/17 at 09:30 JERSEY SALGADO MD Oct 27, 2017 14:52
== END 2017-10-27 15:54 | disposition home or self-care (01) | DRG 473 ==
LOC: REC 12:02 → MS1 20:10
PROVIDERS: ADMIT Specialist; ATTEND Specialist
PROC: 0RT30ZZ Resection of Cervical Vertebral Disc, Open Approach (ICD-10-PCS; 2017-10-21)
PROC: 0PP304Z Removal of Internal Fixation Device from Cervical Vertebra, Open Approach (ICD-10-PCS; 2017-10-21)
PROC: 0RG10A0 Fusion of Cervical Vertebral Joint with Interbody Fusion Device, Anterior Approach, Anterior Column, Open Approach (ICD-10-PCS; principal; 2017-10-21 14:30)
DX: M50.123 Cervical disc disorder at C6-C7 level with radiculopathy (principal); E11.8 Type 2 diabetes mellitus with unspecified complications; M48.02 Spinal stenosis, cervical region; Z79.4 Long term (current) use of insulin; J02.9 Acute pharyngitis, unspecified; R04.0 Epistaxis
CPT/HCPCS: 36600; 71010; 71250; 72052; 72141; 80048; 80053; 82803; 82962; 83735; 85025; 86999; 92526; 92610; 97110; 97116; 97162; 97165; 97530; 97535; J0131; J0690; J1100; J1170; J1200; J1815; J2250; J2405; J2710; J3010; J3480; J7042